=== PATIENT | female | born 1985 | race Caucasian/White ===

== ENCOUNTER 2016-10-18 11:03 | Emergency (ER) | payer OTHER ==
[2016-10-18 12:37] LABS: HEMOGLOBIN 14.7 gm/dl (12.3-15.3); RED BLOOD COUNT 4.62 M/UL (4.00-5.10); WHITE BLOOD COUNT 6.8 K/UL (4.5-11.0)
[2016-10-18 12:56] LABS: BUN/CREATININE RATIO 18 (0-10)
== END 2016-10-18 16:05 | disposition home or self-care (01) ==
LOC: ER1 11:03
PROVIDERS: Physician Assistant
DX: R10.2 Pelvic and perineal pain (principal); R11.2 Nausea with vomiting, unspecified; F17.210 Nicotine dependence, cigarettes, uncomplicated
CPT/HCPCS: 36415; 80053; 81001; 84703; 85025; 87210; 96374; 96375; 99284; J2270; J2405